=== PATIENT | male | born 1960 | race Caucasian/White ===

== ENCOUNTER 2023-12-25 11:52 | Emergency (ER) | payer OTHER ==
[~2023-12-25] VITALS: Ht 182.9 cm; Wt 74.8 kg
[2023-12-25] MEDS ORDERED: LOSARTAN POTASS50 MG PO (13:01)
[2023-12-25] MEDS ORDERED: AMLODIPINE BESYL5 MG PO (13:01)
[2023-12-25] MEDS ORDERED: ATORVASTATIN CA40 MG PO (13:02)
[2023-12-25 13:57] VITALS: BP 144/67
[2023-12-25] MEDS ORDERED: MAXITROL 0.1 %1 SUS OU (15:12)
[2023-12-25 15:21] VITALS: BP 144/67
== END 2023-12-25 15:25 | disposition home or self-care (01) ==
LOC: ED 11:52
DX: H10.9 Unspecified conjunctivitis (principal); I10 Essential (primary) hypertension; Z86.73 Personal history of transient ischemic attack (TIA), and cerebral infarction without residual deficits